=== PATIENT | female | born 1965 | race Caucasian/White ===

== ENCOUNTER 2023-01-15 08:55 | Emergency (ER) | payer BC, OTHER, SELFPAY ==
[2023-01-15 09:06] VITALS: BP 195/100; PULSE 75; RESP 24; TEMP 36.6; O2SAT 98; BMI 44.3
--- NOTE | 2023-01-15 09:24 | CRLHL7_ITS ---
For Patients: As a result of the Century Cures Act, medical imaging exams and procedure reports are released immediately into your electronic medical record. You may view this report before your referring provider. If you have questions, please contact your health care provider. INDICATION: Pain and swelling COMPARISON: None. TECHNIQUE: Left upper extremity and neck venous ultrasound performed as well as ultrasound of right internal jugular vein including saxena scale/2D, color Doppler, and spectral Doppler imaging including spectral waveform analysis. FINDINGS: The internal jugular, innominate, subclavian, axillary, basilic, cephalic, and brachial veins were patent and negative for thrombus. Normal Doppler flow noted. IMPRESSION: No evidence for DVT in the left upper extremity and neck venous system. Dictated by David Henry MD @ 01/15/2023 12:46:00 PM (Electronically Signed)
--- NOTE | 2023-01-15 09:25 | CRLHL7_ITS ---
For Patients: As a result of the Cures Act, medical imaging exams and procedure reports are released immediately into your electronic medical record. You may view this report before your referring provider. If you have questions, please contact your health care provider. INDICATION: Pain. TECHNIQUE: PA, oblique and lateral views of the left hand. COMPARISON: None. IMPRESSION: No fracture. No subluxation or dislocation. Low-grade degenerative/osteoarthritic changes. Dictated by Pawel Whiting MD @ 01/15/2023 10:24:06 AM (Electronically Signed)
--- NOTE | 2023-01-15 09:26 | ED.GENADULT ---
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 She has noticed it to be slightly warm. She is concerned about infection. She has not had any cellulitic problem in that arm before although she does have chronic lymphedema. She reports as mention no trauma no fall no injury. But she is concerned might be broken as it feels like it is in that much pain. Patient is ambulatory, alert, distractible. She is noncyanotic. Related Data Previous Rx's Medication Instructions Recorded amoxicillin 875 mg-potassium 1 tab PO BID #14 tabs 01/15/23 clavulanate 125 mg tablet hydrocodone 5 mg-acetaminophen 325 1 tab PO Q6H PRN pain #14 tabs 01/15/23 mg tablet Allergies Allergy/AdvReac Type Severity Reaction Status Date / Time aspirin Allergy Verified 01/15/23 09:04 Gadolinium-Containing Allergy Verified 01/15/23 09:04 Contrast Medi sulfamethoxazole Allergy Verified 01/15/23 09:05 [From Bactrim] trimethoprim [From Bactrim] Allergy Verified 01/15/23 09:05 morphine AdvReac Verified 01/15/23 09:05 Review of Systems Status of ROS: Reports: 6 or more systems reviewed and unremarkable except as noted in History and below [facility] Social History Smoking Status: Never smoker Do you use any of these nicotine containing products: None Second hand tobacco smoke exposure: Yes How often do you have a drink containing alcohol: monthly or less How many standard drinks containing alcohol do you have on a typical day: 1 or 2 How often do you have six or more drinks on one occasion: Never AUDIT-C Alcohol total score: 1 Non-prescribed substance use: denies use service: No Exam Narrative: Exam Narrative: Objective: Vital signs are elevated blood pressure afebrile HEENT is unremarkable Left upper extremity shows motion at the shoulder and elbow that is full no redness or ascending cellulitic changes got some chronic lymphedema the forearm and elbow region she has got some more prominent swelling over the dorsum of her hand which is new slight warmth there are no open wounds no bleeding or bruising she is able to move her fingers Extremities normal neurologic nonfocal pulses regular. Patient reports she has had allergy to morphine but that makes her heart race, it is the only 1 that given her trouble, she has had other pain medications and tolerated these by her report. Const: Vital Signs, click to edit/add: Vital Signs - 24 hr 01/15/23 09:06 01/15/23 12:20 Temperature 97.9 F Pulse Rate [Pulse Oximeter] 75 70 Respiratory Rate 24 12 Blood Pressure [Ri ght Forearm] 195/100 H 174/99 H Pulse Oximetry 98 99 Oxygen Delivery Me thod Room Air Room Air Course Vital Signs Vital signs: Initial Vital Signs Temperature 97.9 F 01/15/23 09:06 Temperature Source Temporal Artery Scan 01/15/23 09:06 Pulse Rate 75 01/15/23 09:06 Pulse Rhythm 01/15/23 09:06 Respiratory Rate 24 01/15/23 09:06 Blood Pressure 195/100 H 01/15/23 09:06 Blood Pressure Mean 131 01/15/23 09:06 Blood Pressure Position Supine 01/15/23 09:06 Pulse Oximetry 98 01/15/23 09:06 Oxygen Delivery Method 01/15/23 09:06 Vital Signs Temperature 97.9 F 01/15/23 09:06 Pulse Rate 75 01/15/23 09:06 Respiratory Rate 24 01/15/23 09:06 Blood Pressure 195/100 H 01/15/23 09:06 Pulse Oximetry 98 01/15/23 09:06 Oxygen Delivery Method 01/15/23 09:06 Temperature 97.9 F 01/15/23 09:06 Pulse Rate 70 01/15/23 12:20 Respiratory Rate 12 01/15/23 12:20 Blood Pressure 174/99 H 01/15/23 12:20 Pulse Oximetry 99 01/15/23 12:20 Oxygen Delivery Method 01/15/23 12:20 Medical Decision Making [facility] Narrative Medical decision making narrative: Patient is a 49-year-old female who had a very long day working overnight of about 16 hours, she has chronic lymphedema of the arm, she is now she has increasing pain and some warmth of the dorsum of the hand. As well as increased swelling in that area. Concern for it is simply increased lymphedema due to her long day, will put her in a sling, would also rule out blood clot in infection will cover her with Rocephin IM, will give her some Percocet orally the patient will get a Doppler and x-ray of the hand lab studies disposition pending findings above. Rule out clot rule out fracture, rule out increasing lymphedema from overuse Addendum: Patient be given an arm sling, her lab studies look relatively reassuring. She has a negative Doppler scan on the left upper extremity. She has been given Rocephin and pain medicine is helping somewhat will send her home with pain medication as well as antibiotic. Would recommend off work for the next week, elevation of the arm, medications as prescribed which will include [place] and Augmentin. Arm sling, elevation, recheck with regular doctor in the next 2-3 days. Lab Data Labs: Lab Results 01/15/23 01/15/23 Range/Units 09:32 09:32 WBC 12.19 H (4.50-11.00) K/uL RBC 4.61 (4.00-5.20) m/uL Hgb 13.1 (12.0-16.0) gm/dL Hct 40.0 (33.0-51.0) % MCV 87 (80-100) fL MCH 28 (26-34) pg MCHC 33 (32-36) gm/dL RDW Coeff of Carley 12.9 (11.5-15.5) % Plt Count 346 (140-440) K/uL Neut % (Auto) 71.8 (42.0-72.0) % Lymph % (Auto) 18.5 L (20-44) % Schuyler % (Auto) 7.1 (0.0-11.0) % Eos % (Auto) 2.1 (0.0-7.0) % Baso % (Auto) 0.2 (0.0-3.0) % Neut # (Auto) 8.80 H (1.7-7.0) K/uL Lymph # (Auto) 2.30 (0.90-2.90) K/uL Schuyler # (Auto) 0.90 (0.00-0.90) K/UL Eos # (Auto) 0.30 (0.00-0.50) K/uL Baso # (Auto) 0.00 (0.00-0.30) K/uL Sodium 137 (135-149) mmol/L Potassium 3.9 (3.6-5.1) mmol/L Chloride 100 (96-114) mmol/L Carbon Dioxide 30 (20-32) mmol/L BUN 13 (7-30) mg/dL Creatinine 0.7 (0.5-1.5) mg/dL Estimated Creat Clear 72.47 Estimated GFR 100 ml/min Glucose 150 H (60-115) mg/dL Calcium 9.0 (8.4-10.6) mg/dL C-Reactive Protein 2.8 H (0.5-1.0) mg/dL Discharge Plan Discharge Clinical Impression: Arm pain, left Patient Disposition: Home, Self-Care Condition: Stable Additional Instructions: Recommend off work for the next week, would recommend an arm sling as given. Would recommend Augmentin 875mg twice a day for 7 days. Use [place] as needed for pain. Follow-up with primary care in the next 2-3 days for reassessment, keep arm elevated, return sooner to ER as needed. Activity Level: Light activity Discharge Diet: Regular Prescriptions: New amoxicillin-pot clavulanate 875-125 mg tablet 1 tab PO BID Qty: 14 0RF hydrocodone-acetaminophen 5-325 mg tablet 1 tab PO Q6H PRN (Reason: pain) Qty: 14 0RF Stand Alone Forms: MyHealth Info Instructions
[2023-01-15] MEDS: OxyCODONE/APAP 5-325 TABLET 2 TAB PO (09:36)
[2023-01-15] MEDS: cefTRIAXone 1 GM VIAL IM (09:37)
[2023-01-15] MEDS: LIDOCAINE 1% 5 ml (pf) 5 ML VIAL 2.1 ML IM (09:38)
[2023-01-15 09:44] LABS: Basophils Percent Auto 0.2 % (0.0-3.0); Eosinophils Percent Auto 2.1 % (0.0-7.0); Hemoglobin* 13.1 gm/dL (12.0-16.0); Immature Granulocytes Pct Auto 0.3 %; Lymphocytes Percent Auto 18.5 % (20-44); Mean Corpuscular HGB Conc 33 gm/dL (32-36); Mean Corpuscular Hemoglobin 28 pg (26-34); Mean Corpuscular Volume 87 fL (80-100); Monocytes Percent Auto 7.1 % (0.0-11.0); Neutrophils Percent Auto 71.8 % (42.0-72.0); Platelet Count* 346 K/uL (140-440); RDW Coefficient of Variation % 12.9 % (11.5-15.5); Red Blood Count 4.61 m/uL (4.00-5.20); White Blood Count* 12.19 K/uL (4.50-11.00)
[2023-01-15 09:47] LABS: Slide Review Reflex No
[2023-01-15 09:51] LABS: Chloride* 100 mmol/L (96-114); Sodium* 137 mmol/L (135-149)
[2023-01-15 09:52] LABS: Potassium* 3.9 mmol/L (3.6-5.1)
[2023-01-15 09:54] LABS: Creatinine* 0.7 mg/dL (0.5-1.5); Est. Creatinine Clearance* 72.47; Estimated Glomerular Filt Rate 100 ml/min
[2023-01-15 09:55] LABS: Blood Urea Nitrogen* 13 mg/dL (7-30); Carbon Dioxide* 30 mmol/L (20-32); Glucose* 150 mg/dL (60-115)
[2023-01-15 09:58] LABS: C Reactive Protein* 2.8 mg/dL (0.5-1.0)
[2023-01-15 12:20] VITALS: BP 174/99; PULSE 70; RESP 12; O2SAT 99
== END 2023-01-15 12:24 | disposition home or self-care (01) ==
PROVIDERS: Emergency Provider Family Medicine; PCP Nurse Practitioner Family
DX: M79.622 Pain in left upper arm (principal)
CPT/HCPCS: 36415; 73130; 80048; 85025; 86140; 93971; 96372; 99284; A9270; J0696